=== PATIENT | female | born 1985 | race Caucasian/White ===

== ENCOUNTER 2018-04-19 04:12 | Observation (INO) | payer BC ==
[2018-04-19 04:44] VITALS: O2SAT 100
--- NOTE | 2018-04-19 04:44 | C.PDOC ---
History Of Present Illness Patient presents to the ER with a complaint of vaginal bleeding and not feeling well that began tonight. Patient states she has been passing large amounts of clots. Here in the ER patient is near syncopal and hypotensive with mild nausea passing large amounts of clots. Denies fever or chills.Pt is about 7 weeks Time Seen by Provider: 04/19/18 04:43 Chief Complaint (Nursing): Female Genitourinary History Per: Patient, Family History/Exam Limitations: no limitations Onset/Duration Of Symptoms: Hrs Current Symptoms Are (Timing): Still Present Severity: Severe Pain Scale Rating Of: 9 Quality Of Discomfort: Unable To Describe Associated Symptoms: Nausea, Other (Not feeling well) Alleviating Factors: None Recent travel outside of the [place]: No Additional History Per: Family Abnormal Vaginal Bleeding: Yes Last Menstral Period: 01/12/18 Past Medical History Reviewed: Historical Data, Nursing Documentation, Vital Signs Vital Signs: Last Vital Signs Temp 98.2 F 04/19/18 04:22 Pulse 92 H 04/19/18 04:22 Resp 20 04/19/18 04:22 BP 115/80 04/19/18 04:22 Pulse Ox 100 04/19/18 04:22 Family History: States: No Known Family Hx - Social History Hx Alcohol Use: No Hx Substance Use: No - Immunization History Hx Tetanus Toxoid Vaccination: No Hx Influenza Vaccination: No Hx Pneumococcal Vaccination: No Review Of Systems Constitutional: Positive for: Other (Not feeling well). Negative for: Fever, Chills Cardiovascular: Negative for: Chest Pain, Palpitations Respiratory: Negative for: Cough, Shortness of Breath Gastrointestinal: Positive for: Nausea, Abdominal Pain Genitourinary: Positive for: Vaginal Bleeding Musculoskeletal: Negative for: Back Pain Skin: Negative for: Rash Neurological: Positive for: Dizziness, Other (Near syncope) Psych: Negative for: Anxiety Physical Exam - Physical Exam Appears: Non-toxic, In Acute Distress Skin: Warm, Dry, Diaphoretic, Pale Head: Normacephalic Eye(s): bilateral: Normal Inspection Oral Mucosa: Dry Neck: Supple Chest: Symmetrical, No Tenderness Cardiovascular: Rhythm Regular Respiratory: Normal Breath Sounds, No Rales, No Rhonchi, No Wheezing Gastrointestinal/Abdominal: Soft, Tenderness (Mild suprapubic), No Guarding, No Rebound Back: No CVA Tenderness Pelvic: Other (Passing large amounts of clots) Extremity: Normal ROM Extremity: Bilateral: Atraumatic Pulses: Left Dorsalis Pedis: Normal, Right Dorsalis Pedis: Normal Neurological/Psych: Oriented x3 Gait: Unable To Assess ED Course And Treatment - Laboratory Results Result Diagrams: 04/19/18 05:06 04/19/18 05:06 O2 Sat by Pulse Oximetry: 100 (Room air) Pulse Ox Interpretation: Normal Progress Note: 4:55 AM spoke with shell sorter -will come and see the pt. 5:15 AM pt feels slighly better. Bp increased to 115/60. dr nair at bedside Critical Care Time - Critical Care Note Total Time (in mins): 30 Documented critical care: time excludes all time spent performing seperately billable procedures. Disposition Discussed With : Maile Nair Comment: accepted the pt on her service and took over the care at 6 AM Doctor Will See Patient In The: ED Counseled Patient/Family Regarding: Studies Performed, Diagnosis - Disposition Disposition: HOSPITALIZED Disposition Time: 04:44 Condition: FAIR Forms: [facility] ([place]) - Clinical Impression Clinical Impression: Miscarriage, Vaginal bleeding - Scribe Statement The provider has reviewed the documentation as recorded by the Scribe Sai Pulliam All medical record entries made by the Scribe were at my direction and personall y dictated by me. I have reviewed the chart and agree that the record accurately reflects my personal performance of the history, physical exam, medical decision making, and the department course for this patient. I have also personally directed, reviewed, and agree with the discharge instructions and disposition. Decision To Admit - Pt Status Changed To: Hospital Disposition Of: Observation - . Bed Request Type: DIAMOND CLEAVER Admitting Physician: Maile Nair Patient Diagnosis: Miscarriage
[2018-04-19] MEDS ORDERED: Sodium Chloride 0.9% 3,000 ML IV ONE (04:57)
[2018-04-19] MEDS ORDERED: Sodium Chloride 0.9% 1,000 ML IV ONE (04:57)
[2018-04-19 05:15] LABS: BASO # 0.1 K/uL (0.0-0.2); BASO % 0.7 % (0.0-2.0); EOS # 0.6 K/uL (0.0-0.7); EOS % 5.5 % (0.0-4.0); HEMOGLOBIN 9.9 g/dL (11.0-16.0); LYMPH # 2.8 K/uL (1.0-4.3); MEAN CELL VOLUME 60.3 fL (81.0-99.0); MEAN CORPUSCULAR HEMOGLOBIN 18.8 pg (27.0-31.0); MEAN CORPUSCULAR HGB CONC 31.2 g/dL (33.0-37.0); MEAN PLATELET VOLUME 7.5 fL (7.2-11.7); MONO # 0.5 K/uL (0.0-0.8); MONO % 5.3 % (0.0-10.0); NEUT # 6.1 K/uL (1.8-7.0); NEUT % 60.5 % (50.0-75.0); NRBC % 0.1 % (0.0-2.0); PLATELET COUNT 330 K/uL (130-400); RBC 5.25 Mil/uL (3.80-5.20); RED CELL DISTRIBUTION WIDTH 17.1 % (11.5-14.5); WHITE BLOOD COUNT 10.1 K/uL (4.8-10.8)
[2018-04-19 05:23] LABS: URINE BILIRUBIN NEGATIVE (NEGATIVE); URINE BLOOD 3+ (NEGATIVE); URINE CLARITY Turbid (Clear); URINE COLOR Red (YELLOW); URINE GLUCOSE (UA) 1+ mg/dL (Normal); URINE LEUKOCYTE ESTERASE NEG Leu/uL (Negative); URINE PROTEIN 3+ mg/dL (NEGATIVE); URINE UROBILINOGEN NORMAL mg/dL (0.2-1.0)
[2018-04-19 05:31] LABS: PROTHROMBIN TIME 10.9 SECONDS (9.7-12.2)
[2018-04-19 05:36] LABS: ALB/GLOB RATIO 1.3 (1.0-2.1); ALBUMIN 4.3 g/dL (3.5-5.0); ALT/SGPT 22 U/L (9-52); AST/SGOT 22 U/L (14-36); BLOOD UREA NITROGEN 9 mg/dL (7-17); CALCIUM 9.2 mg/dl (8.6-10.4); GFR NON-AFRICAN AMERICAN > 60
[2018-04-19] MEDS ORDERED: Lactated Ringer's 1,000 ML IV ONE (06:00)
--- NOTE | 2018-04-19 06:26 | CP.PCM.HP ---
History of Present Illness - History of Present Illness History of Present Illness: 33 yo female G1 with an IUP at 13.6 weeks per LMP and US and an EDC of 10/19/18. Pt presents to ER with c/o of spotting for few days and started bleeding vaginally at about 0300 on day of admission with large blood clots and ? tissue. Pt stated that she had a US done sometime in February that revealed an IUP at about 7 weeks and C/W her LMP of 01/13/18. Pt was seen by Dr. Melly Salinas on last Saturday and started PNC with her then. Pt admitted to minimal spotting since her visit. At time of seen in the ER pt was feeling dizzy, lightheaded and was noted to be Hypotensive with BP of 70/40, Present on Admission - Present on Admission Any Indicators Present on Admission: No History of DVT/PE: No History of Uncontrolled Diabetes: No Urinary Catheter: No Decubitus Ulcer Present: No History Surgical Site Infection Following: None Review of Systems - Review of Systems Systems not reviewed;Unavailable: Acuity of Condition, Unstable Vital Signs - Constitutional Constitutional: As Per HPI - EENT Eyes: As Per HPI Ears: As Per HPI Nose/Mouth/Throat: As Per HPI - Breasts Breasts: As Per HPI - Cardiovascular Cardiovascular: As Per HPI - Respiratory Respiratory: As Per HPI - Gastrointestinal Gastrointestinal: As Per HPI - Genitourinary Genitourinary: As Per HPI - Reproductive: Female Reproductive:Female: As Per HPI, Abnormal Vaginal Bleeding - Menstruation Menstruation: Other (Hx of regular menses and presently ) - Musculoskeletal Musculoskeletal: As Per HPI - Integumentary Integumentary: As Per HPI - Neurological Neurological: As Per HPI - Psychiatric Psychiatric: As Per HPI - Endocrine Endocrine: As Per HPI - Hematologic/Lymphatic Hematologic: Other (Hx of thalassemia Mior/Asymptomaic) Past Patient History - Tetanus Immunizations Tetanus Immunization: Unknown - Past Medical History & Family History Past Medical History?: Yes Past Family History: Reviewed and not pertinent - Past Social History Smoking Status: Never Smoked Chewing Tobacco Use: No Cigar Use: No Alcohol: None Drugs: Denies Home Situation {Lives}: With Family Domestic Violence: Negative - CARDIAC Hx Cardiac Disorders: No - PULMONARY Hx Respiratory Disorders: No Other/Comment: No Cardiac Hx - NEUROLOGICAL Hx Neurological Disorder: No - HEENT Hx HEENT Problems: No - RENAL Hx Chronic Kidney Disease: No - ENDOCRINE/METABOLIC Hx Endocrine Disorders: No - HEMATOLOGICAL/ONCOLOGICAL Hx Blood Disorders: Yes (Hx of Thlasemia Minor/Asymptomatic) Hx Human Immunodeficiency Virus (HIV): No - INTEGUMENTARY Hx Dermatological Problems: No - MUSCULOSKELETAL/RHEUMATOLOGICAL Hx Musculoskeletal Disorders: No - GASTROINTESTINAL Hx Gastrointestinal Disorders: No - GENITOURINARY/GYNECOLOGICAL Hx Genitourinary Disorders: No LMP:: 01/13/2018 : 1 Para: 0 - PSYCHIATRIC Hx Psychophysiologic Disorder: No Hx Substance Use: No - SURGICAL HISTORY Hx Surgeries: No - ANESTHESIA Hx Anesthesia: No Has any member of the family had a problem w/ anesthesia?: No Meds Allergies/Adverse Reactions: Allergies Allergy/AdvReac Type Severity Reaction Status Date / Time No Known Allergies Allergy Verified 04/19/18 06:58 Physical Exam - Respiratory Exam Respiratory Exam: NORMAL BREATHING PATTERN - Cardiovascular Exam Cardiovascular Exam: REGULAR RHYTHM - GI/Abdominal Exam GI & Abdominal Exam: Normal Bowel Sounds - Rectal Exam Rectal Exam: NORMAL INSPECTION - Exam Speculum exam: Vaginal Bleeding Bimanual exam: Uterine Enlargement - Extremities Exam Extremities exam: Positive for: full ROM, normal inspection - Back Exam Back exam: NORMAL INSPECTION - Neurological Exam Neurological exam: Alert, Oriented x3 - Psychiatric Exam Psychiatric exam: Normal Affect, Normal Mood - Skin Skin Exam: Dry, Intact, Normal Color, Warm Results - Vital Signs Recent Vital Signs: Last Vital Signs Temp 98.2 F 04/19/18 04:22 Pulse 73 04/19/18 05:08 Resp 15 04/19/18 05:08 BP 107/51 L 04/19/18 05:08 Pulse Ox 100 04/19/18 06:06 - Labs Result Diagrams: 04/19/18 05:06 04/19/18 05:06 Labs: Laboratory Results - last 24 hr 04/19/18 04/19/18 04/19/18 04:46 04:46 05:06 WBC 10.1 RBC 5.25 H Hgb 9.9 L Hct 31.7 L MCV 60.3 L MCH 18.8 L MCHC 31.2 L RDW 17.1 H Plt Count 330 MPV 7.5 Neut % (Auto) 60.5 Lymph % (Auto) 28.0 [place] % (Auto) 5.3 Eos % (Auto) 5.5 H Baso % (Auto) 0.7 Neut # (Auto) 6.1 Lymph # (Auto) 2.8 [place] # (Auto) 0.5 Eos # (Auto) 0.6 Baso # (Auto) 0.1 PT INR APTT Sodium Potassium Chloride Carbon Dioxide Anion Gap BUN Creatinine Est GFR ( Amer) Est GFR (Non-Af Amer) Random Glucose Calcium Total Bilirubin AST ALT Alkaline Phosphatase Total Protein Albumin Globulin Albumin/Globulin Ratio Urine Color Red Urine Clarity Turbid Urine pH 7.0 Ur Specific [place] 1.033 H Urine Protein 3+ H Urine Glucose (UA) 1+ Urine Ketones Trace Urine Blood 3+ H Urine Nitrate Negative Urine Bilirubin Negative Urine Urobilinogen Normal Ur Leukocyte Esterase Neg Urine WBC (Auto) 116 H Urine RBC (Auto) 53829 H Urine HCG, Qual Positive 04/19/18 04/19/18 05:06 05:06 WBC RBC Hgb Hct MCV MCH MCHC RDW Plt Count MPV Neut % (Auto) Lymph % (Auto) [place] % (Auto) Eos % (Auto) Baso % (Auto) Neut # (Auto) Lymph # (Auto) [place] # (Auto) Eos # (Auto) Baso # (Auto) PT 10.9 INR 1.0 APTT 36 H Sodium 138 Potassium 3.9 Chloride 101 Carbon Dioxide 23 Anion Gap 18 BUN 9 Creatinine 0.5 L Est GFR ( Amer) > 60 Est GFR (Non-Af Amer) > 60 Random Glucose 102 Calcium 9.2 Total Bilirubin 0.5 AST 22 ALT 22 Alkaline Phosphatase 51 Total Protein 7.6 Albumin 4.3 Globulin 3.3 Albumin/Globulin Ratio 1.3 Urine Color Urine Clarity Urine pH Ur Specific [place] Urine Protein Urine Glucose (UA) Urine Ketones Urine Blood Urine Nitrate Urine Bilirubin Urine Urobilinogen Ur Leukocyte Esterase Urine WBC (Auto) Urine RBC (Auto) Urine HCG, Qual Assessment & Plan - Assessment and Plan (Free Text) Assessment: IUP at 13.6 weeks per LMP and 7 weeks US Incomplete Miscarriage S/P Hemodynamically unstable on presentation to ER that improved with IV Hydration Hx of Thalasemia Minor/Asymptomatic Plan: LABS and US done in ER Tissue from Vagina sent to Pathology Blood type pending Counseled re need for D&E and verbalized Understanding OR aware and will proceed at 7 AM Report given to Dr. Bridges, OBN Hospitalist contract negotiation specialist today Will most likely admit patient to 23 hrs observation after the procedure - Date & Time Date: 04/19/18 Time: 06:00 Decision To Admit - Pt Status Changed To: Hospital Disposition Of: IP to OP/OBS (Code 44) - Admit Certification Admit to Inpatient:: 23 hrs Observation - InPatient: Physician Admission Certification:: DO Fani Up . Bed Request Type: TUFTING MACHINE OPERATOR
[2018-04-19 07:10] LABS: BASOPHIL 2 % (0-2); EOSINOPHIL 6 % (0-4); LYMPHOCYTE 28 % (20-40); MONOCYTE 4 % (0-10); NEUTROPHIL 58 % (50-75); REACTIVE LYMPHOCYTES 2 % (0-0); TOTAL CELLS COUNTED 100
[2018-04-19 07:11] LABS: ANISOCYTOSIS MODERATE; MICROCYTOSIS MODERATE; OVALOCYTES SLIGHT; PLATELET ESTIMATE NORMAL (NORMAL); TEARDROP CELLS SLIGHT
[2018-04-19 07:12] LABS: POLYCHROMIC SLIGHT; SCHISTOCYTES SLIGHT
[2018-04-19 07:13] LABS: HYPOCHROMIC MODERATE
[2018-04-19] MEDS ORDERED: Doxycycline 100 mg Inj ONE (07:42)
[2018-04-19] MEDS ORDERED: Midazolam 2 MG/2 ML VIAL ONE (07:45)
[2018-04-19] MEDS ORDERED: Propofol 10 mg/ml Inj (20 ML) ONE (07:45)
[2018-04-19] MEDS ORDERED: Oxytocin 10 Units/ml Inj ONE (07:54)
[2018-04-19] MEDS ORDERED: Lactated Ringer's 1,000 ML IV SCH ×2 (08:30)
--- NOTE | 2018-04-19 08:31 | PCM.SURG1 ---
Surgeon's Initial Post Op Note - Surgeon's Notes Surgeon: Meagan Bridges MD Procedures Nurse: Not applicable Type of Anesthesia: General LMA Anesthesia Administered By: Jb Lim DO Pre-Operative Diagnosis: Incomplete ; hemorrhage; thalassemia minor Operative Findings: Cervical os 1cm dilated. Tissue at external os. Anteverted uterus, 10cm, soft mobile; sounded to 9 cm. Normal adnexae bilaterally Post-Operative Diagnosis: Same Operation Performed: Suction/Sharp curettage Specimen/Specimens Removed: Products of conception Estimated Blood Loss: EBL {In ML}: 50 (U.O. 100mL; 500 mL LR) Blood Products Given: N/A Drains Used: No Drains Post-Op Condition: Good Date of Surgery/Procedure: 04/19/18 Time of Surgery/Procedure: 08:10
--- NOTE | 2018-04-19 09:42 | US ---
Date of service: 04/19/2018 HISTORY: and vaginal bleeding COMPARISON: Not available TECHNIQUE: Transabdominal and transvaginal FINDINGS: UTERUS: Measures 10.6 x 6.0 x 7.8 cm. Normal in size and appearance. No fibroid or other mass lesion seen. ENDOMETRIUM: Measures 21 mm in diameter. No intrauterine gestational sac identified. Hypervascular heterogeneous contents within the endometrial cavity suspicious for retained products of conception. Trace endometrial fluid. CERVIX: No cervical abnormality identified. RIGHT OVARY: Measures 2.6 x 1.8 x 2.9 cm. No solid mass. Normal flow. LEFT OVARY: Measures 2.3 x 1.7 x 2.6 cm. No solid mass. Normal flow. FREE FLUID: There is minimal fluid in the cul-de-sac. OTHER FINDINGS: None. IMPRESSION: No intrauterine gestation identified. Heterogeneous vascular soft tissue within the endometrial cavity concerning for retained products of conception. The preliminary findings for this examination were reported by [facility] Radiology at 7:10 a.m. on 04/19/2018. There is concurrence of this report with the preliminary findings.
[2018-04-19 09:46] VITALS: RESP 20
[2018-04-19 12:43] LABS: BASO % 0.3 % (0.0-2.0); EOS % 0.1 % (0.0-4.0); LYMPH % 7.4 % (20.0-40.0); MEAN CELL VOLUME 61.1 fL (81.0-99.0); MEAN CORPUSCULAR HEMOGLOBIN 19.2 pg (27.0-31.0); MEAN CORPUSCULAR HGB CONC 31.5 g/dL (33.0-37.0); MEAN PLATELET VOLUME 7.8 fL (7.2-11.7); MONO # 0.2 K/uL (0.0-0.8); MONO % 1.7 % (0.0-10.0); NEUT # 11.7 K/uL (1.8-7.0); NEUT % 90.5 % (50.0-75.0); PLATELET COUNT 294 K/uL (130-400); WHITE BLOOD COUNT 12.9 K/uL (4.8-10.8)
[2018-04-19 12:50] LABS: HEMOGLOBIN 7.5 g/dL (11.0-16.0)
[2018-04-19 14:51] VITALS: BP 112/63; PULSE 88; TEMP 979
[2018-04-19 15:51] LABS: ANISOCYTOSIS SLIGHT; HYPOCHROMIC MODERATE; LARGE PLATELETS PRESENT; LYMPHOCYTE 9 % (20-40); MICROCYTOSIS SLIGHT; MONOCYTE 1 % (0-10); NEUTROPHIL 90 % (50-75); OVALOCYTES SLIGHT; PLATELET ESTIMATE SLIGHTLY INCREASED (NORMAL); POIKILOCYTOSIS SLIGHT; TARGET CELLS SLIGHT; TEARDROP CELLS SLIGHT; TOTAL CELLS COUNTED 100
--- NOTE | 2018-04-19 16:15 | CP.PCM.DIS ---
Provider - Provider Date of Admission: 04/19/18 05:59 Attending physician: Maile Ralph DO Time Spent in preparation of Discharge (in minutes): 45 Diagnosis - Discharge Diagnosis (1) Incomplete with delayed or excessive hemorrhage Status: Resolved Priority: High Onset Date: ~04/19/18 Comment: Status post uterine suction/sharp curettage. Mildly elevated WBC noted - this is wnl. Will discharge patient home on antibiotics for prophylaxis. Lengthy discussion had with patient and re: today's events. Support and empathy provided. Also discussed recommendation of Heme-Onc. Importance stressed of follow up with primary Ob provider, Dr. Siri Salinas. (2) Thalassemia minor Status: Chronic Priority: Medium Onset Date: ~04/19/18 Comment: Patient had had a first Ob visit 04/15/18; blood work performed, results pending. Status post suction/sharp curettage, post op H/H 7.5/23.8. Case D/W Dr. Benjamin Nunez, Heme-Onc electronic engineering technician. Recommends continuing folic acid 1 mg p.o. daily, and to follow CBC and serum iron level as an outpatinet. Patient can do so either with primary Ob provider with referral to Heme-Onc thereafter, if indicated, or himself directly. Patient and has decided to see Dr. Salinas first. Will call her offcie on Saturday04/21/18 and proceed accordingly. Hospital Course - Lab Results Lab Results: Most Recent Lab Values WBC 12.9 K/uL (4.8-10.8) H 04/19/18 12: RBC 3.90 Mil/uL (3.80-5.20) 04/19/18 12:26 Hgb 7.5 g/dL (11.0-16.0) L D 04/19/18 12: Hct 23.8 % (34.0-47.0) L 04/19/18 12:26 MCV 61.1 fL (81.0-99.0) L 04/19/18 12:26 MCH 19.2 pg (27.0-31.0) L 04/19/18 12:26 MCHC 31.5 g/dL (33.0-37.0) L 04/19/18 12: RDW 17.0 % (11.5-14.5) H 04/19/18 12:26 Plt Count 294 K/uL (130-400) 04/19/18 12:26 MPV 7.8 fL (7.2-11.7) 04/19/18 12:26 Neut % (Auto) 90.5 % (50.0-75.0) H 04/19/18 12:26 Lymph % (Auto) 7.4 % (20.0-40.0) L 04/19/18 12:26 [place] % (Auto) 1.7 % (0.0-10.0) 04/19/18 12: Eos % (Auto) 0.1 % (0.0-4.0) 04/19/18 12: Baso % (Auto) 0.3 % (0.0-2.0) 04/19/18 12: Neut # (Auto) 11.7 K/uL (1.8-7.0) H 04/19/18 12:26 Lymph # (Auto) 1.0 K/uL (1.0-4.3) 04/19/18 12:26 [place] # (Auto) 0.2 K/uL (0.0-0.8) 04/19/18 12: Eos # (Auto) 0.0 K/uL (0.0-0.7) 04/19/18 12:26 Baso # (Auto) 0.0 K/uL (0.0-0.2) 04/19/18 12:26 Neutrophils % (Manual) 90 % (50-75) H 04/19/18 12:26 Lymphocytes % (Manual) 9 % (20-40) L 04/19/18 12:26 Reactive Lymphs % 2 % (0-0) H 04/19/18 05:06 Monocytes % (Manual) 1 % (0-10) 04/19/18 12:26 Eosinophils % (Manual) 6 % (0-4) H 04/19/18 05:06 Basophils % (Manual) 2 % (0-2) 04/19/18 05:06 Platelet Estimate Slightly increased (NORMAL) H 04/19/18 12:26 Large Platelets Present 04/19/18 12:26 Polychromasia Slight 04/19/18 05:06 Hypochromasia (manual) Moderate 04/19/18 12:26 Poikilocytosis (manual Slight 04/19/18 12:26 Anisocytosis (manual) Slight 04/19/18 12:26 Microcytosis (manual) Slight 04/19/18 12:26 Macrocytosis (manual) Slight 04/19/18 12:26 Target Cells Slight 04/19/18 12:26 Tear Drop Cells Slight 04/19/18 12:26 Ovalocytes Slight 04/19/18 12:26 Schistocytes Slight 04/19/18 05:06 PT 10.9 SECONDS (9.7-12.2) 04/19/18 05:06 INR 1.0 04/19/18 05:06 APTT 36 SECONDS (21-34) H 04/19/18 05:06 Sodium 138 mmol/L (132-148) 04/19/18 05:06 Potassium 3.9 mmol/L (3.6-5.2) 04/19/18 05:06 Chloride 101 mmol/L (98-107) 04/19/18 05:06 Carbon Dioxide 23 mmol/L (22-30) 04/19/18 05:06 Anion Gap 18 (10-20) 04/19/18 05:06 BUN 9 mg/dL (7-17) 04/19/18 05:06 Creatinine 0.5 mg/dL (0.7-1.2) L 04/19/18 05:06 Est GFR ( Amer) > 60 04/19/18 05:06 Est GFR (Non-Af Amer) > 60 04/19/18 05:06 Random Glucose 102 mg/dL (65-105) 04/19/18 05:06 Calcium 9.2 mg/dl (8.6-10.4) 04/19/18 05:06 Total Bilirubin 0.5 mg/dL (0.2-1.3) 04/19/18 05:06 AST 22 U/L (14-36) 04/19/18 05:06 ALT 22 U/L (9-52) 04/19/18 05:06 Alkaline Phosphatase 51 U/L (38-126) 04/19/18 05:06 Total Protein 7.6 g/dL (6.3-8.3) 04/19/18 05:06 Albumin 4.3 g/dL (3.5-5.0) 04/19/18 05:06 Globulin 3.3 gm/dL (2.2-3.9) 04/19/18 05:06 Albumin/Globulin Ratio 1.3 (1.0-2.1) 04/19/18 05:06 Beta HCG, Quant 2588.80 mIU/ML 04/19/18 05:06 Urine Color Red (YELLOW) 04/19/18 04:46 Urine Clarity Turbid (Clear) 04/19/18 04:46 Urine pH 7.0 (5.0-8.0) 04/19/18 04:46 Ur Specific [place] 1.033 (1.003-1.030) H 04/19/18 04:46 Urine Protein 3+ mg/dL (NEGATIVE) H 04/19/18 04:46 Urine Glucose (UA) 1+ mg/dL (Normal) 04/19/18 04:46 Urine Ketones Trace mg/dL (NEGATIVE) 04/19/18 04:46 Urine Blood 3+ (NEGATIVE) H 04/19/18 04:46 Urine Nitrate Negative (NEGATIVE) 04/19/18 04:46 Urine Bilirubin Negative (NEGATIVE) 04/19/18 04:46 Urine Urobilinogen Normal mg/dL (0.2-1.0) 04/19/18 04:46 Ur Leukocyte Esterase Neg [place]bie/uL (Negative) 04/19/18 04:46 Urine WBC (Auto) 116 /hpf (0-5) H 04/19/18 04:46 Urine RBC (Auto) 20445 /hpf (0-3) H 04/19/18 04:46 Urine HCG, Qual Positive (NEGATIVE) 04/19/18 04:46 Blood Type O POSITIVE 04/19/18 05:29 Antibody Screen Negative 04/19/18 05:29 - Hospital Course Hospital Course: Patient admitted at 0559 hours with diagnosis of incomplete . Pelvic ultrasound performed confirmed probable products of conception in endometrial cavity. Patient was counseled for uterine evacuation for completion, and had agreed. Patient was received by me at approximately 0725 hours in the holding area of the main O.R. R/B/C of anticipated procedure was explained in depth to her and her . All her questions and concerns were answered and addressed. Patient signed consent forms for procedure and possible blood transfusion. Patient underwent uncomplicated uterine suction/sharp curettage under general anesthesia with LMA (see separate report). In PACU, procedure performed was explained to patient and her Patient transported to room 455 on Mother-Baby unit. Patient was received in room 455 at approximately 1430 hours: reports voiding spontaneously 5 times by that time. Ambulated to the bathroom without difficulty. Reports only small drops of blood upon urinating. Had one brief episode of lightheadedness; denies loss of consciousness, chest pain, palpitations or shortness of breath. No nausea oar vomiting; has eaten a meal since. has been by her side for support. - Date & Time of H&P Date of H&P: 04/19/18 Time of H&P: 06:15 Discharge Exam - Head Exam Head Exam: ATRAUMATIC, NORMAL INSPECTION, NORMOCEPHALIC - Eye Exam Eye Exam: Normal appearance - ENT Exam ENT Exam: Mucous Membranes Moist - Neck Exam Neck exam: Full Rom - Respiratory Exam Respiratory Exam: NORMAL BREATHING PATTERN - Cardiovascular Exam Cardiovascular Exam: REGULAR RHYTHM - GI/Abdominal Exam GI & Abdominal Exam: Normal Bowel Sounds, Soft Additional comments: non tender - Exam External exam: NORMAL EXTERNAL EXAM Additional comments: Sanitary napkin noted for minimal spotting - Extremities Exam Extremities exam: full ROM, normal inspection - Neurological Exam Neurological exam: Alert, Normal Gait, Oriented x3 - Psychiatric Exam Psychiatric exam: Normal Affect, Normal Mood Discharge Plan - Discharge Medications Prescriptions: Doxycycline Monohydrate 100 mg PO BID #14 tablet - Follow Up Plan Condition: GOOD Disposition: HOME/ ROUTINE Instructions: Dilation and Curettage (DC), Miscarriage (DC) Additional Instructions: Upon discharge, please be sure to call the office of Dr. Mitchell Salinas to schedule a follow-up appointment to see her. Continue taking vitamins (1 tablet by mouth once daily) Continue taking folic acid 1 milligram tablet by mouth once daily Nothing should be introduced into vagina for the next 2 weeks (no sex, douching or tampon) No heavy lifting for 1 week Referrals: Siri Salinas MD [Staff Provider] -
--- NOTE | 2018-04-19 17:52 | OP ---
PROCEDURE DATE: 04/19/2018 PREOPERATIVE DIAGNOSES: Incomplete with hemorrhage and thalassemia minor. POSTOPERATIVE DIAGNOSES: Incomplete with hemorrhage and thalassemia minor. SURGEON: Meagan Bridges MD FARROWING MANAGER: Not applicable. TYPE OF ANESTHESIA: General with LMA. ANESTHESIA ADMINISTERED BY: Jb Lim DO OPERATIVE FINDINGS: Cervical os was dilated 1 cm. Tissue was noted at the external os. Anteverted uterus, approximately 10 cm, soft and mobile. Normal adnexa bilaterally. Uterus sounded to 10cm OPERATION PERFORMED: Suction/sharp curettage. SPECIMENS: Products of conception. ESTIMATED BLOOD LOSS: 50 mL. URINE OUTPUT: Approximately 100 mL. INTRAVENOUS FLUIDS: 500 mL of lactated Ringer's, 20 units of Pitocin was subsequently added to 1000 mL LR and infusing as the patient was being transferred to the PACU BLOOD PRODUCTS GIVEN: None. COMPLICATIONS: None. DESCRIPTION OF PROCEDURE: The patient was taken to the operating room after having obtained informed consent for the anticipated procedure. This included a discussion of possible risks and complications including but not limited to uterine perforation requiring possible laparoscopy and laparotomy with repair of any damage to internal organs; removal of all diseased tissue; infection, requiring antibiotics; hemorrhage, requiring possible blood transfusion. After signing consent forms, they were dated, witnessed and placed in the chart. The patient was then transferred to the operating room. She was placed on the operating room table in the supine position and general anesthesia with LMA was administered without difficulty. The patient was repositioned in a dorsal lithotomy position and her legs were placed in candy-cane stirrups. Uterine catheterization was performed. Urine output as above. Bimanual examination was performed. Findings as above. The perineum was prepped and she was draped in usual sterile fashion. A weighted speculum was placed in the posterior vaginal vault to visualize the cervix. At this time, products of conception were noted, and grasped with a ring forceps, being removed in total. The anterior lip of the cervix was grasped with a ring forceps. The uterus was sounded as above. A 10 cm suction curette was then inserted. The suction device was activated and the uterus was emptied of any additional blood clots and tissue. Sharp curettage was performed until a gritty texture was obtained. Suction curettage was repeated. The uterus was noted to be contracted around the instruments. All instruments were removed. Hemostasis was assured. Bimanual massage was performed. The uterus was contracted and firm. All instruments were removed. The patient was repositioned in the supine position. She was allowed to arise from anesthesia and transferred to the post anesthesia care unit in stable condition. Meagan Wilmar Bridges MD MTDForeign
--- NOTE | 2018-04-21 21:20 | CARD ---
APPROVED REPORT Date of service: 04/19/2018 EKG Measurement Heart [id number] [id number] <Conclusion> Normal sinus rhythm with sinus arrhythmia Normal ECG
== END 2018-04-19 17:20 | disposition home or self-care (01) ==
LOC: C.ER 04:12 → C.4M 05:59
PROVIDERS: ADMIT Obstetrics & Gynecology; ATTEND Obstetrics & Gynecology
DX: O03.4 Incomplete spontaneous abortion without complication (principal); D56.3 Thalassemia minor; Z3A.13 13 weeks gestation of pregnancy; N85.4 Malposition of uterus; I95.9 Hypotension, unspecified; R55 Syncope and collapse
CPT/HCPCS: 59812; 76830; 76856; 80053; 81001; 84702; 84703; 85025; 85610; 85730; 86850; 86900; 88305; 93005; 96361; 96374; 99285; G0378; J2250; J2405; J2590; J2704; J3010; J7030; J7120